=== PATIENT | male | born 1965 | race Caucasian/White ===

== ENCOUNTER 2019-09-08 08:04 | Day surgery (SDC) | payer MEDICARE ==
[2019-09-07 09:12] VITALS: BMI 33.5
[2019-09-08 08:31] VITALS: TEMP 97.3
[2019-09-08] MEDS ORDERED: LACTATED RINGERS 1,000 ML IV ONE (08:35)
[2019-09-08] MEDS ORDERED: LIDOCAINE 1% 20 ML VIAL (10MG/ML) FOR IV START INTRADERMA ONE (08:35)
[2019-09-08] MEDS ORDERED: PROPOFOL 10 MG/ML 20 ML VIAL IV ONE (08:54)
--- NOTE | 2019-09-08 08:57 | P.GSHP ---
History of Present Illness H&P Date: 09/08/19 Chief Complaint: History of colon polyps Is a 54-year-old male presents today for colonoscopy. Patient has history of colon polyps Past Medical History Past Medical History: No Reported History Additional Past Medical History / Comment(s): Right knee arthroplasty infection status post removal of hardware, as per replace replacement and replacement of hardware under the care of Dr. Lee and Dr. Alvarez. History of Any Multi-Drug Resistant Organisms: None Reported Past Surgical History: Appendectomy, Cholecystectomy, Joint Replacement, Orthopedic Surgery Additional Past Surgical History / Comment(s): right knee arthroplasty X2, removal of hardware and placement of a spacer and subsequent replacement of hardware to the right knee. rt knee replacement Left knee arthroscopically and partial arthroplasty. Past Anesthesia/Blood Transfusion Reactions: No Reported Reaction Smoking Status: Current every day smoker - Past Family History Father Family Medical History: Cancer Additional Family Medical History / Comment(s): Dad at age 62 from lung cancer. Mother Family Medical History: Cancer Additional Family Medical History / Comment(s): Mother is alive at age 76. She has been a smoker. She has suffered from colon cancer. Brother(s) Additional Family Medical History / Comment(s): Patient had 5 brothers. One has from hepatitis. Patient has 2 sisters. One uses drugs and 1 is a heavy alcohol drinker. Medications and Allergies Home Medications Medication Instructions Recorded Confirmed Type [place] Carbonate 600 mg PO DAILY 06/30/17 09/08/19 History QUEtiapine [SEROquel] 100 mg PO HS 06/30/17 09/08/19 History Zolpidem Tartrate [Ambien] 5 mg PO HS PRN 09/07/19 09/08/19 History Allergies Allergy/AdvReac Type Severity Reaction Status Date / Time No Known Allergies Allergy Verified 09/08/19 08:30 Surgical - Exam Vital Signs Temp Pulse Resp BP Pulse Ox 97.3 F L 71 18 168/89 96 09/08/19 08:24 09/08/19 08:24 09/08/19 08:24 09/08/19 08:24 09/08/19 08:24 - General well developed, well nourished, no distress - Eyes PERRL - ENT normal pinna - Neck no masses - Respiratory normal expansion - Cardiovascular Rhythm: regular - Abdomen Abdomen: soft, non tender Assessment and Plan Assessment: History of colon polyps. We'll perform colonoscopy
--- NOTE | 2019-09-08 09:14 | P.OP ---
Date of Procedure: 09/08/19 Preoperative Diagnosis: History: Polyps Postoperative Diagnosis: right colon polyp Diverticulosis Procedure(s) Performed: Colonoscopy Anesthesia: MAC Surgeon: Dennis Cruz Pathology: other (Right colon polyp) Condition: stable Disposition: PACU Description of Procedure: The patient's placed on the endoscopy table in the lateral position. He received IV sedation. Digital rectal exam was performed. The prostate was symmetric without nodules. The flexible colonoscope was then placed patient anus and passed throughout the entire colon. The ileocecal valve was visualized. Cecum appeared normal. In the right colon a small sessile polyp. This removed with the cold forcep. The scope was then withdrawn remainder the ascending colon, transverse colon appeared normal. In the descending colon there was diverticulosis. Scope summer back and; there is extensive diverticular changes. Scope was then brought back the rectum this appeared to have patient.
[2019-09-08 09:26] VITALS: RESP 16
[2019-09-08 09:44] VITALS: PULSE 68
[2019-09-08] MEDS ORDERED: hydrALAZINE HCL 20 MG/ML 1 ML VIAL IV ONE ×2 (09:53→10:14)
[2019-09-08 10:23] VITALS: BP 169/90
== END 2019-09-08 10:31 | disposition home or self-care (01) ==
LOC: ORWHC2ENDO 08:04
PROVIDERS: ATTEND Surgery
DX: Z12.11 Encounter for screening for malignant neoplasm of colon (principal); D12.2 Benign neoplasm of ascending colon; K57.30 Diverticulosis of large intestine without perforation or abscess without bleeding; R89.7 Abnormal histological findings in specimens from other organs, systems and tissues; Z86.010 Personal history of colon polyps; F31.9 Bipolar disorder, unspecified; F17.210 Nicotine dependence, cigarettes, uncomplicated; E66.9 Obesity, unspecified; Z68.33 Body mass index [BMI] 33.0-33.9, adult; Z96.653 Presence of artificial knee joint, bilateral; Z90.49 Acquired absence of other specified parts of digestive tract; Z98.890 Other specified postprocedural states; Z79.899 Other long term (current) drug therapy; Z80.1 Family history of malignant neoplasm of trachea, bronchus and lung; Z80.0 Family history of malignant neoplasm of digestive organs; Z81.2 Family history of tobacco abuse and dependence; Z83.79 Family history of other diseases of the digestive system; Z81.3 Family history of other psychoactive substance abuse and dependence; Z81.1 Family history of alcohol abuse and dependence
CPT/HCPCS: 88305; 45380; J0360; J2704